=== PATIENT | male | born 1980 | race Two or more races ===

== ENCOUNTER 2023-07-03 22:47 | Emergency (ER) | payer SELFPAY ==
[~2023-07-03] VITALS: Ht 170.2 cm; Wt 77.2 kg
[2023-07-04 00:10] VITALS: BP 123/76; PULSE 78; RESP 18; TEMP 98.3; O2SAT 98
[2023-07-04] MEDS ORDERED: IBUPROFEN 800 MG TAB PO ONE (00:30)
== END 2023-07-04 01:22 | disposition home or self-care (01) ==
LOC: ER 22:47
DX: S00.81XA Abrasion of other part of head, initial encounter (principal); W20.8XXA Other cause of strike by thrown, projected or falling object, initial encounter; Y93.89 Activity, other specified; Y92.89 Other specified places as the place of occurrence of the external cause; Y99.8 Other external cause status
CPT/HCPCS: 70450; 70486